=== PATIENT | female | born 1980 | race American Indian/Alaskan Native ===

== ENCOUNTER 2018-02-08 10:18 | Day surgery (SDC) | payer OTHER ==
[2018-02-08] MEDS ORDERED: NACL 0.9% 1000 ML 1,000 ML IV SCH (11:00)
[2018-02-08] MEDS ORDERED: XYLOCAINE MPF 2% ONE (12:00)
[2018-02-08] MEDS ORDERED: WATER FOR IRRIG STERILE IR ONE (12:02)
[2018-02-08] MEDS ORDERED: DIPRIVAN 10 MG/ML IV ONE ×3 (12:06→12:36)
--- NOTE | 2018-02-08 13:13 | Post Operative Note ---
Pre-op diagnosis: Iron deficency anemia Post-op diagnosis: same (Also, minimal antritis and mild internal hemorrhoids) Procedure: EGD with cold biopsy; Also, colonoscopy to the cecum Anesthesia: MAC Surgeon: SHILOH WU Estimated blood loss: none Pathology: list (Antral biopsy) Specimen disposition: to lab Condition: stable Disposition: no change
[2018-02-08 13:28] VITALS: BP 130/90
--- NOTE | 2018-02-08 13:34 | Anesthesia Day of Surgery ---
Anesthesia Day of Surgery - Day of Surgery Patient Examined: Yes Patient H&P Reviewed: Yes Patient is NPO: Yes Beta Blockers: No Cardiac Clearance: No Pulmonary Clearance: No
--- NOTE | 2018-02-08 13:35 | Anesthesia Consultation ---
Anesthesia Consult and Med Hx - Airway Anesthetic Teeth Evaluation: Good ROM Head & Neck: Adequate Mental/Hyoid Distance: Adequate Mallampati Class: Class III Intubation Access Assessment: Good - Pulmonary Exam CTA: No - Cardiac Exam Cardiac Exam: No Murmur - Pre-Operative Health Status ASA Pre-Surgery Classification: ASA1, ASA3 Proposed Anesthetic Plan: MAC - Pulmonary Hx Smoking: No Hx Asthma: No Hx Respiratory Symptoms: No SOB: No (denies) COPD: No Hx Pneumonia: No Hx Sleep Apnea: No - Cardiovascular System Hx Hypertension: No Hx Coronary Artery Disease: No Hx Heart Attack/AMI: No Hx Angina: No (denies) Hx Cardia Arrhythmia: No Hx Valvular Heart Disease: No Hx Peripheral Vascular Disease: No - Central Nervous System Hx Neuromuscular Disorder: No Hx Seizures: No CVA: No Hx Back Pain: No Hx Psychiatric Problems: No - Gastrointestinal Hx Ulcer: No Hx Gastroesophageal Reflux Disease: No - Endocrine Hx Renal Disease: No Hx End Stage Renal Disease: No Hx Liver Disease: No Hx Insulin Dependent Diabetes: No Hx Non-Insulin Dependent Diabetes: No Hx Thyroid Disease: No Hx Hypothyroidism: No Hx Hyperthyroidism: No - Hematic Hx Anemia: Yes Hx Sickle Cell Disease: No - Other Systems Hx Alcohol Use: No Hx Substance Use: No Hx Cancer: No Hx Obesity: No
--- NOTE | 2018-02-10 10:03 | Operative Report ---
Operative Report Operative Report: Date of operation: 02/08/2018 Preoperative diagnosis: Iron deficiency anemia Postoperative diagnoses: 1) iron deficiency anemia 2) mild antritis 3) mild internal hemorrhoids Operation: 1) EGD with cold biopsy 2) colonoscopy to cecum Surgeon: Daniel Thrasher M.D. Findings: See above. Anesthesia: MAC EBL: None There were no complications, drains or cultures. Specimens consisted of the antral biopsy. Description of procedure: Patient was placed in a left lateral decubitus position. She was sedated intravenously by anesthesia. Bite-block was placed between her incisors. The endoscope was introduced into the patient's oropharynx and the esophagus intubated under direct vision. Examination of the esophagus, stomach and first and second portions of the duodenum was accomplished. The examination was unremarkable except for a mild/minimal antritis which was photodocumented. A single cold biopsy of the antrum was then obtained. There was no significant bleeding from the biopsy site. This examination included a retroflexed view of the GE junction and fundus. Insufflated air was aspirated from the stomach and the scope withdrawn. Patient was then repositioned for a colonoscopy. The colonoscope was introduced into the patient's rectum and was advanced retrograde while directly visualizing her colonic lumen. The prep was adequate. Once the cecum was identified, scope was slowly withdrawn with careful circumferential visualization of the colonic mucosa. Retroflexed view of the distal rectum was also performed. Examination revealed no polyps, tumors, AVMs, diverticula or mucosal ulcerations. Some mild internal hemorrhoids were noted on the retroflexed view. Insufflated air was aspirated and scope withdrawn. Patient tolerated both procedures well. She was recovered in the GI suite.
== END 2018-02-08 10:19 | disposition home or self-care (01) ==
LOC: GIO 10:18
PROVIDERS: ATTEND Surgery
DX: D50.0 Iron deficiency anemia secondary to blood loss (chronic) (principal); K29.60 Other gastritis without bleeding; K43.9 Ventral hernia without obstruction or gangrene; D25.9 Leiomyoma of uterus, unspecified; K64.8 Other hemorrhoids; Z98.891 History of uterine scar from previous surgery; Z82.49 Family history of ischemic heart disease and other diseases of the circulatory system; Z83.3 Family history of diabetes mellitus; Z98.890 Other specified postprocedural states
CPT/HCPCS: 43239; 45378; 88305; 88342; J2704; J7030

== ENCOUNTER 2018-03-01 05:51 | Day surgery (SDC) | payer OTHER ==
[2018-03-01] MEDS ORDERED: NACL BACTERIOSTATIC INFILTRATI ONE (06:42)
[2018-03-01] MEDS ORDERED: HEPARIN SUB-Q NR (07:15)
[2018-03-01] MEDS ORDERED: HEPARIN ONE (07:18)
[2018-03-01] MEDS ORDERED: LACTATED RINGERS 1,000 ML ONE (07:18)
[2018-03-01] MEDS ORDERED: XYLOCAINE MPF 2% ONE (07:20)
[2018-03-01] MEDS ORDERED: SUBLIMAZE ONE (07:22)
[2018-03-01] MEDS ORDERED: DIPRIVAN 10 MG/ML IV ONE (07:22)
[2018-03-01] MEDS ORDERED: MARCAINE-EPI 0.5%-1:200,000 INFILTRATI ONE ×2 (07:50)
[2018-03-01] MEDS ORDERED: DECADRON ONE (07:59)
[2018-03-01] MEDS ORDERED: ZOFRAN ONE (07:59)
[2018-03-01] MEDS ORDERED: BLOXIVERZ ONE (07:59)
[2018-03-01] MEDS ORDERED: ROBINUL ONE (07:59)
[2018-03-01] MEDS ORDERED: LACTATED RINGERS 1,000 ML IV SCH (08:00)
[2018-03-01] MEDS ORDERED: VERSED IV NR (08:00)
[2018-03-01] MEDS ORDERED: ANCEF/STERILE WATER 2 GM/20 ML IV NR (08:00)
[2018-03-01] MEDS ORDERED: DILAUDID IV PRN (08:23)
--- NOTE | 2018-03-01 08:23 | Anesthesia Day of Surgery ---
Anesthesia Day of Surgery - Day of Surgery Patient Examined: Yes Patient H&P Reviewed: Yes Patient is NPO: Yes
--- NOTE | 2018-03-01 08:23 | Anesthesia Consultation ---
Anesthesia Consult and Med Hx Date of service: 03/01/18 - Airway Anesthetic Teeth Evaluation: Good ROM Head & Neck: Adequate Mental/Hyoid Distance: Adequate Mallampati Class: Class III Intubation Access Assessment: Possibly Difficult - Pulmonary Exam CTA: Yes - Cardiac Exam Cardiac Exam: RRR - Pre-Operative Health Status ASA Pre-Surgery Classification: ASA2 Proposed Anesthetic Plan: General - Pulmonary Hx Smoking: No Hx Asthma: No Hx Respiratory Symptoms: No COPD: No Hx Sleep Apnea: No - Cardiovascular System Hx Hypertension: No Hx Heart Attack/AMI: No - Central Nervous System Hx Seizures: No CVA: No - Gastrointestinal Hx Gastroesophageal Reflux Disease: No - Endocrine Hx Renal Disease: No Hx Liver Disease: No Hx Insulin Dependent Diabetes: No Hx Thyroid Disease: No - Hematic Hx Anemia: Yes (01/31/18 HGB 9.2) - Other Systems Hx Obesity: No - Additional Comments Anesthesia Medical History Comments: No prior GA. No FHx anesthetic complications.
[2018-03-01] MEDS ORDERED: PERCOCET 5/325 PO PRN ×2 (09:10→09:12)
[2018-03-01] MEDS ORDERED: PERCOCET 5/325 ONE (09:17)
[2018-03-01 10:00] VITALS: BP 140/60
--- NOTE | 2018-03-01 10:11 | Procedure Note ---
Date of procedure: 03/01/18 Pre-op diagnosis: Ventral hernia Post-op diagnosis: same Procedure: Open repair of ventral hernia with Ventralex mesh Description of procedure: Patient was placed supine on the operating room table. After adequate GETA was administered, her abdomen was prepped and draped. Skin and subcutaneous tissue over the hernia were infiltrated with 5 mL of 0.5% Marcaine with epinephrine. Skin was incised. The hernia sac was immediately identified and this was dissected down to its fascial margins. The sac was incised and was not found to contain any incarcerated tissue. The hernia sac was excised at the level of the fascia. The fascial defect measured approximately 3 cm. A large piece of ventralex mesh was inserted into the peritoneal cavity and was appropriately positioned. The mesh was secured to the fascia and the fascia simultaneously approximated with several interrupted sutures of 0 Ethibond. Wound was irrigated with warm saline. Skin was approximated with a running subcuticular suture of 4-0 Monocryl. A sterile pressure dressing was applied and this was secured with Tegaderm. Patient tolerated the procedure well. She was extubated in the operating room and was taken to PACU in stable condition. Anesthesia: GETA Surgeon: SHILOH WU Estimated blood loss: minimal Pathology: none Condition: stable Disposition: PACU
--- NOTE | 2018-03-01 10:21 | Post Anesthesia Evaluation ---
- Post Anesthesia Evaluation Patient Participated: Yes Airway Patent: Yes Stable Respiratory Function: Yes Nausea/Vomiting: No Temp > 96.8F: Yes Pain Manageable: Yes Adequeate Hydration: Yes Anesthesia Complications: No
== END 2018-03-01 05:52 | disposition home or self-care (01) ==
LOC: OR 05:51
PROVIDERS: ATTEND Surgery
DX: K43.9 Ventral hernia without obstruction or gangrene (principal); D64.9 Anemia, unspecified; Z79.899 Other long term (current) drug therapy; Z98.891 History of uterine scar from previous surgery; Z98.890 Other specified postprocedural states
CPT/HCPCS: 49560; 49568; 81025; C1781; J0690; J1100; J1170; J1644; J2250; J2405; J2704; J2710; J3010; J7120

== ENCOUNTER 2018-06-08 08:22 | Outpatient (CLI) | payer OTHER ==
--- NOTE | 2018-06-08 10:11 | XRay Report ---
XRAY CHEST TWO VIEWS: 06/08/18 09:26 CLINICAL: Cough. COMPARISON: None FINDINGS: Partial consolidation of the left lower lobe is identified on both views. The left upper lobe and the right lung are normally expanded and clear. No pleural effusion.The bones and soft tissues are normal. IMPRESSION: Left lower lobe pneumonia with partial consolidation.
== END 2018-06-08 08:23 | disposition home or self-care (01) ==
LOC: SPVIMAG 08:22
PROVIDERS: ATTEND Family Medicine
DX: J18.1 Lobar pneumonia, unspecified organism (principal)
CPT/HCPCS: 71046

== ENCOUNTER 2018-06-21 09:39 | Outpatient (CLI) | payer OTHER ==
--- NOTE | 2018-06-21 10:28 | XRay Report ---
XRAY CHEST TWO VIEWS: 06/21/18 09:39:00 CLINICAL: Cough.Followup pneumonia. COMPARISON: 06/08/18 FINDINGS: Interval improvement with significantly decreasedleft lower lobe opacification. Rest of the lungs are clear. No pleural effusion. Normal heart and pulmonary vessels.The bones and soft tissues are unremarkable. IMPRESSION: Interval improvementin left lower lobe pneumonia.
== END 2018-06-21 09:40 | disposition home or self-care (01) ==
LOC: SPVIMAG 09:39
PROVIDERS: ATTEND Family Medicine
DX: J18.1 Lobar pneumonia, unspecified organism (principal)
CPT/HCPCS: 71046